=== PATIENT | female | born 1960 | race Caucasian/White ===

== ENCOUNTER 2018-04-10 21:05 | Emergency (ER) | payer BC ==
[~2018-04-10] VITALS: Ht 152.4 cm; Wt 88.0 kg
[2018-04-10 21:14] VITALS: BP 142/51; Ht 152.4 cm; Wt 88.0 kg
== END 2018-04-10 22:51 | disposition home or self-care (01) ==
LOC: ED 21:05
DX: J02.9 Acute pharyngitis, unspecified (principal); I10 Essential (primary) hypertension; F31.9 Bipolar disorder, unspecified
CPT/HCPCS: J0561